=== PATIENT | male | born 1935 | race Hispanic/Latino ===

== ENCOUNTER 2018-02-04 06:49 | Observation (INO) | payer MEDICARE, OTHER ==
[2018-02-04] VITALS (32 sets, daily range): BP systolic 70–182; BP diastolic 55–112
[~2018-02-04] VITALS: Ht 167.6 cm; Wt 70.6 kg
[~2018-02-04 06:49] MED LIST: AMLODIPINE BESY10 MG PO; AZITHROMYCIN250 MG PO; CEFDINIR250 MG/5 M PO; CLONIDINE HCL0.1 MG PO; COMBIVENT RESPIM4 GM IH; COREG12.5 MG PO; FISH OIL500 M1 PO; FLOMAX0.4 MG PO; LASIX40 MG PO; LEVOTHYROXINE25 MCG PO; LOVASTATIN40 MG PO; PREDNISOLONE ACE5 ML; QVAR7.3 GM INH; RENVELA0.8 GM; SODIUM BICARBO650 MG PO; TERAZOSIN HCL2 MG PO; ULTRAM50 MG PO; VITAMIN D3400 UNIT PO
[2018-02-04 07:18] LABS: BASOPHILS % 0.2 % (0.0-1.0); EOSINOPHILS # (AUTO) 0.1 (0.0-0.4); EOSINOPHILS % 0.6 % (0.0-6.0); HEMATOCRIT 34.7 % (38.2-49.6); HEMOGLOBIN 11.1 g/dL (14.0-18.0); LYMPHOCYTES # (AUTO) 2.7 (1.0-3.2); LYMPHOCYTES % 31.4 % (18.0-39.1); MEAN CORPUSCULAR HEMOGLOBIN 28.6 pg (28-32); MEAN CORPUSCULAR VOLUME 89.4 fL (81-99); MONOCYTES # (AUTO) 0.6 (0.2-0.8); MONOCYTES % 6.4 % (4.4-11.3); NEUTROPHILS # (AUTO) 5.3 (2.1-6.9); NEUTROPHILS % 61.1 % (38.7-80.0); PLATELET COUNT 118 x10e3/uL (140-360); RED BLOOD COUNT 3.88 x10e6/uL (4.3-5.7); RED CELL DISTRIBUTION WIDTH 14.7 % (11.7-14.4)
[2018-02-04 07:25] LABS: INR 1.17
[2018-02-04] MEDS ORDERED: NIFEDIPINE ER30 MG (07:30)
[2018-02-04 07:35] LABS: ALBUMIN/GLOBULIN RATIO 1.1 (0.8-2.0); ANION GAP 17.4 mmol/L (8-16); CREATININE, SERUM 9.72 mg/dL (0.72-1.25); MAGNESIUM 2.2 MG/DL (1.3-2.1); POTASSIUM 4.4 mmol/L (3.5-5.1)
[2018-02-04 07:41] LABS: CREATINE KINASE MB 1.3 ng/mL (0-5.0)
[2018-02-04] MEDS ORDERED: FUROSEMIDE INJ 10 MG/ML 10 ML VIAL IV ONE (08:15)
[2018-02-04] MEDS ORDERED: ASPIRIN 325 MG TAB PO ONE (08:15)
[2018-02-04] MEDS ORDERED: NITROGLYCERIN 2% OINT 1 GM PKT TOP ONE (08:15)
--- NOTE | 2018-02-04 08:22 | Diagnostic Imaging Report ---
PROCEDURE: A single AP view of the chest. COMPARISON: Portable chest 12/02/2016. INDICATIONS: CHEST PAIN FOR A FEW HOURS FINDINGS: Lines/tubes: None. Lungs: Bilateral multifocal airspace opacifications. No parenchymal mass. Pleura: There is no pleural effusion or pneumothorax. Heart and mediastinum: The heart and the mediastinum are unremarkable. Bones: No acute bony abnormality. Degenerative changes of the thoracic spine. IMPRESSION: Bilateral multifocal airspace opacifications may represent edema or pneumonia. Dictated by: Urbano Aguirre M.D. on 02/04/2018 at 8:23 Electronically approved by: Urbano Aguirre M.D. on 02/04/2018 at 8:23
[2018-02-04] MEDS ORDERED: FUROSEMIDE INJ 10 MG/ML 4 ML VIAL ONE (08:30)
[2018-02-04] MEDS ORDERED: METOPROLOL TARTRATE INJ 1 MG/ML VIAL IV STA (10:08)
[2018-02-04] MEDS ORDERED: ONDANSETRON HCL INJ 2 MG/ML VIAL IV PRN ×2 (14:15→17:45)
[2018-02-04] MEDS ORDERED: NITROGLYCERIN 0.4 MG SUBL SL PRN (14:15)
[2018-02-04] MEDS ORDERED: MORPHINE SULFATE 2 MG/ML SYR IV PRN ×2 (14:15→17:45)
[2018-02-04] MEDS ORDERED: SODIUM CHLORIDE FLUSH 10 ML SYR INJ PRN (14:15)
[2018-02-04] MEDS ORDERED: HYDRALAZINE HCL 20 MG/ML VIAL IV PRN (15:00)
[2018-02-04] MEDS ORDERED: ALBUTEROL/IPRATROPIUM 3 ML NEB NEB PRN (15:00)
[2018-02-04] MEDS ORDERED: ACETAMINOPHEN 325 MG TAB PO PRN ×2 (15:15→17:45)
--- OUTSIDE RECORDS SUMMARY | 2018-02-04 15:21 | XMS REPORT ---
Author Author [facility] Address Unknown Phone Unavailable Care Team Providers Care Manager Cost Name Role Phone KAYDEN COMER Unavailable Unavailable Problems This patient has no known problems. Allergies, Adverse Reactions, Alerts This patient has no known allergies or adverse reactions. Medications This patient has no known medications. Results Test Description Test Time Test Comments Text Results Atomic Results Result Comments CHEST SINGLE (PORTABLE) [place] [id number] Patient Name: DENISE VALLE MR #: [id number] : 1935 Age/Sex: 82/M Req #: [id number] Adm Physician: Ordered by: JUN LUTHER MD Report #: [id number] Location: ER Room/Bed: Procedure: [id number] DX/CHEST SINGLE (PORTABLE) Exam Date: 02/04/18 Exam Time: 0800 REPORT STATUS: Signed PROCEDURE: A single AP view of the chest. COMPARISON: Portable chest 12/02/2016. INDICATIONS: CHEST PAIN FOR A FEW HOURS FINDINGS: Lines/tubes: None. Lungs: Bilateral multifocal airspace opacifications. No parenchymal mass. Pleura: There is no pleural effusion or pneumothorax. Heart and mediastinum: The heart and the mediastinum are unremarkable. Bones: No acute bony abnormality. Degenerative changes of the thoracic spine. IMPRESSION: Bilateral multifocal airspace opacifications may represent edema or pneumonia. Dictated by: Angela Quezada M.D. on at 8:23 Electronically approved by: Angela Quezada M.D. on 2017 at 8:23 Dictated By: ANGELA QUEZADA MD 2 Transcribed By: MARGARET on 02/04/18822 COPY TO: JUN LUTHER MD
--- NOTE | 2018-02-04 15:27 | Consultation ---
DATE OF CONSULTATION: February 04, 2018 The patient was seen in the emergency room. This is an 82-year-old gentleman well known to me. He is a dialysis patient of ours. Dialyzes at [facility] dialysis on a Sunday, Sunday and Sunday schedule. Slept fine. He had no problems he claims when he slept. Then at midnight he developed chest pain, which was lower sternal area. No radiation. No diaphoresis. Presented to the emergency room and has an abnormal ECG and possible CA. Cardiology will be consulted. Renal consult for management of kidney failure. He is currently laying supine. No apparent respiratory distress. Denies nausea, vomiting, chest pain, or shortness of breath. Labs show white count 8.7, hemoglobin 11.1 with a potassium of 4.4, bicarbonate 29, creatinine 9.7. Calcium is 11. BNP 2163. Chest x-ray shows cardiomegaly with pulmonary edema. ALLERGIES: NO APPARENT DRUG ALLERGIES. HOME MEDICATIONS: Not reconciled yet. Has received nitroglycerin when he had chest pain in the emergency room, and the pain resolved with 1 sublingual nitroglycerin. Also, received 5 mg of metoprolol IV, as well as morphine sulfate on a p.r.n. basis. He is also on ondansetron. SOCIAL HISTORY: Does not smoke or drink. PAST MEDICAL HISTORY: Underlying history of end-stage renal disease, congestive heart failure, atherosclerotic cardiovascular disease, secondary hyperparathyroidism, and anemia. PHYSICAL EXAMINATION GENERAL: Awake, alert and oriented times 3. Laying supine. No apparent distress. VITALS: Blood pressure 144/89, pulse rate 102, afebrile, respiratory rate 20, oxygen saturation 97%. HEAD AND NECK: Cornea clear. Oral mucosa are dry. LUNGS: Bibasilar rales. HEART: S1 and S2 audible. A 2-3/6 ejection systolic murmur heard over the left sternal border. ABDOMEN: Otherwise soft and nontender. LOWER EXTREMITY EXAMINATION: Shows no edema. IMPRESSION AND PLAN 1. Congestive heart failure. 2. Angina. 3. End-stage renal disease. 4. Fluid overload. 5. Pulmonary edema. 6. Hypercalcemia likely due to cinacalcet perhaps he is taking at home. Will hold off on all calcium products, including cinacalcet. Patient's family to bring home medication. I will arrange for dialysis. O2 protocol. Discuss with Dr. Porter. Cardiology to be consulted. Please see orders. Job#: [id number] RI
[2018-02-04] MEDS ORDERED: ONDANSETRON HCL 4 MG ORAL DISINTEGRATING TAB PO PRN (15:30)
[2018-02-04 15:49] LABS: CLARITY,URINE CLEAR (CLEAR); COLOR,URINE YELLOW (YELLOW); LEUKOCYTE ESTERASE ,URINE NEGATIVE (NEGATIVE)
[2018-02-04 15:50] LABS: BILIRUBIN,URINE NEGATIVE (NEGATIVE); KETONES,URINE NEGATIVE (NEGATIVE); NITRITE,URINE NEGATIVE (NEGATIVE); PROTEIN,URINE DIPSTICK 3+ (NEGATIVE); URINE UROBILINOGEN 0.2 mg/dL (0.2 - 1)
[2018-02-04 16:06] LABS: BACTERIA,URINE FEW /HPF; EPITHELIAL CELLS,URINE RARE /LPF
[2018-02-04] MEDS ORDERED: SODIUM CHLORIDE 0.9% 500ML 500 ML ONE (16:20)
[2018-02-04] MEDS: CLONIDINE HCL 0.1 MG TAB PO SCH (17:00)
[2018-02-04] MEDS: CARVEDILOL 12.5 MG TAB PO SCH (17:00)
[2018-02-04] MEDS ORDERED: FENTANYL CITRATE/PF 100MCG/2 ML INJ ONE (17:38)
[2018-02-04] MEDS ORDERED: MIDAZOLAM HCL 2 MG/2 ML VIAL ONE (17:38)
[2018-02-04] MEDS ORDERED: HYDROCODONE/APAP 5MG-325MG TAB PO PRN (17:45)
[2018-02-04] MEDS ORDERED: MORPHINE SULFATE 4 MG/ML SYR IV PRN (17:45)
[2018-02-04] MEDS ORDERED: LIDOCAINE HCL 2% LOCAL 20 ML VIAL ONE (17:54)
[2018-02-04 18:20] LABS: CREATINE KINASE MB 3.7 ng/mL (0-5.0)
[2018-02-04] MEDS: NITROGLYCERIN 2% OINT 1 GM PKT TOP SCH (18:49)
[2018-02-04] MEDS ORDERED: NIFEDIPINE CR 30 MG TAB PO SCH (21:00)
[2018-02-04] MEDS: SIMVASTATIN 40 MG TAB PO SCH (21:00)
[2018-02-04] MEDS ORDERED: ATORVASTATIN 40 MG TAB PO SCH (21:00)
[2018-02-04] MEDS ORDERED: SIMVASTATIN 20 MG TAB PO SCH (21:00)
--- NOTE | 2018-02-04 21:27 | Consultation ---
DATE OF CONSULTATION: February 04, 2018 REASON FOR CONSULTATION: Chest pain. HISTORY OF PRESENT ILLNESS: Mr. Caldwell is an 82-year-old gentleman with past medical history of hypertension, hypercholesterolemia, end stage renal disease on hemodialysis for the past 6 years, history of chronic lymphocytic leukemia currently under observation, who presents to this institution after waking up at around midnight today with severe substernal chest pain, pressure, tightness, heaviness associated with dyspnea without any radiations. At one point the pain was so severe and he could not take it anymore and was relatively relentless. He was brought to the emergency room where admission EKG revealed significant [address] depressions in the inferolateral precordial leads rather ominous for active ischemia. Patient was stabilized in the emergency room and since that time his ST segments have improved. Upon probing, patient continues to have low level discomfort he reports is a 4/10 in the center of his chest despite medical therapy. We had a long discussion in terms of differential diagnoses and causes of chest pain and patient understands the high likelihood of an acute coronary syndrome. We only have 1 set of cardiac enzymes with the first set of troponin being 0.065, again BNP elevated at 2,163. Patient maintains good compliance with his hemodialysis and has not missed any however is due for dialysis session today. PAST MEDICAL HISTORY 1. Hypertension. 2. Hypercholesterolemia. 3. End stage renal disease on hemodialysis Sunday, Sunday and Sunday for the past 6 years. 4. Chronic lymphocytic leukemia, counts under observation with primary care physician. 5. Hypothyroidism. PAST SURGICAL HISTORY 1. Left arm fistula surgery. 2. History of bilateral corneal transplantation. FAMILY HISTORY: Mother at the age of 95 from old age. Father was unknown. Denies any family history of coronary disease. SOCIAL HISTORY: He is nonsmoker. Former heavy alcohol use, quit in the late . Denies any illicit drug use. ALLERGIES: NO KNOWN DRUG ALLERGIES. HOME MEDICATIONS: Include 1. Norvasc 10 mg daily. 2. Coreg 25 mg b.i.d. 3. Nifedipine 30 mg daily. 4. Renagel tablet daily. 5. Beclomethasone inhaled. 6. Atrovent inhaled. 7. Tramadol p.r.n. 8. Clonidine 0.1 mg b.i.d. REVIEW OF SYSTEMS GENERAL: Positive for fatigue, malaise. Denies any fevers, chills or any weight changes. HEENT: No headaches. Has chronically decreased vision. No sore throat, stuffy nose. RESPIRATORY: Denies any pleuritic components of the chest pain. Positive for shortness of breath when the pain was severe. CARDIOVASCULAR: As per HPI. Denies any subjective palpitations. GI: Denies any abdominal pain, nausea, vomiting, bright red blood per rectum, melena, hematemesis. : Denies any dysuria but does report decreased urinary frequency and is currently on hemodialysis. MUSCULOSKELETAL: He has chronic bilateral severe arthritic pain and back pain. PERIPHERAL VASCULAR: Denies any typical claudication symptoms. Does have some leg swelling at the end of the day. NEUROLOGIC: Does have some peripheral neuropathy sensation. Denies any focal weakness, history of seizures, TIA or stroke. Remainder of review of systems negative or otherwise mentioned. PHYSICAL EXAMINATION VITAL SIGNS: Height of 68 inches, weight of 162 pounds. Temperature 98.3, pulse 105, respiratory rate of 20, blood pressure 164/103, O2 sat 98% on room air. GENERAL: This is a well-nourished, well-developed gentleman who is currently in moderate distress. HEENT: Normocephalic, atraumatic. There is stigmata of old corneal surgery. NECK: There is some slight elevation of jugular venous pulsation left carotid bruit. CARDIOVASCULAR: Irregularly irregular rate and rhythm. Normal S1, S2. Soft 2-3/6 ejection murmur at the right upper sternal border. LUNGS: With decreased bibasilar breath sounds and decreased air entry with some basilar crackles. ABDOMEN: Soft, nontender, nondistended with normoactive bowel sounds. No hepatosplenomegaly. There is old laparoscopic cholecystectomy scar. BACK: No costovertebral angle tenderness. EXTREMITIES: Warm with 1+ right radial pulse, 1+ left radial pulse, left forearm fistula. There is 2+ bilateral femoral pulses and minimal diminished pedal pulses. There is 1+ edema. NEUROLOGIC: Cranial nerves II-XII are intact. Strength is 5/5. Grossly nonfocal. LABS: White count 8.7, hemoglobin 11.1, hematocrit 34.7, platelets 118, sodium 139, potassium 4.4, chloride 97, bicarb 29, BUN 47, creatinine 9.72, glucose 131, calcium 11.0, magnesium 2.2, AST 18, ALT 13, alk phos 99, total protein 7.7, albumin 4.0. BNP is 2,163. Troponin is 0.065. Chest x-ray shows bilateral multifocal airspace opacities, likely edema. EKG reveals atypical atrial flutter with rapid ventricular response. There is notable severe ST segment depressions in the inferolateral precordial leads concerning for ischemia that subsequently resolves when he is chest-pain free. DIAGNOSES 1. Acute unstable coronary syndrome. 2. Atrial flutter, atypical and new onset. 3. Hypertension. 4. Hypercholesterolemia. 5. End stage renal disease on hemodialysis. 6. Acute decompensated systolic heart failure with stigmata of acute pulmonary edema. 7. Chronic lymphocytic leukemia. 8. Thrombocytopenia. PLAN/RECOMMENDATIONS 1. From a cardiovascular standpoint, will proceed with urgent cardiac catheterization in light of ongoing chest pain symptoms and clinical presentation. 2. Will go ahead and continue beta alana therapy and statin therapy. 3. Aggressive risk factor modification of medical therapy. 4. Will check echocardiogram to look at his left ventricular function. 5. Appreciate renal consult for volume management. 6. Further plans/recommendations to follow. Job#: [id number] DRAGAN
[2018-02-04 22:18] LABS: CREATINE KINASE MB 4.1 ng/mL (0-5.0)
[2018-02-05] VITALS (67 sets, daily range): BP systolic 77–159; BP diastolic 56–109
[2018-02-05] MEDS: LEVOTHYROXINE SODIUM 25 MCG TABLET PO SCH (06:11)
[2018-02-05] MEDS: NITROGLYCERIN 2% OINT 1 GM PKT TOP SCH ×2 (06:12)
[2018-02-05 06:20] LABS: BASOPHILS % 0.1 % (0.0-1.0); EOSINOPHILS % 0.1 % (0.0-6.0); HEMATOCRIT 31.1 % (38.2-49.6); HEMOGLOBIN 9.9 g/dL (14.0-18.0); LYMPHOCYTES # (AUTO) 2.6 (1.0-3.2); LYMPHOCYTES % 33.2 % (18.0-39.1); MEAN CORPUSCULAR HEMOGLOBIN 28.5 pg (28-32); MEAN CORPUSCULAR HGB CONC 31.8 g/dL (31-35); MEAN CORPUSCULAR VOLUME 89.6 fL (81-99); MONOCYTES # (AUTO) 0.7 (0.2-0.8); MONOCYTES % 9.1 % (4.4-11.3); NEUTROPHILS # (AUTO) 4.5 (2.1-6.9); NEUTROPHILS % 57.2 % (38.7-80.0); PLATELET COUNT 104 x10e3/uL (140-360); RED BLOOD COUNT 3.47 x10e6/uL (4.3-5.7); RED CELL DISTRIBUTION WIDTH 15.1 % (11.7-14.4)
--- NOTE | 2018-02-05 06:42 | Diagnostic Imaging Report ---
EXAMINATION: CHEST SINGLE (PORTABLE) INDICATION: Chest pain, previous abnormal chest x-ray COMPARISON: 12/02/2016 FINDINGS: TUBES and LINES: None. LUNGS: Lungs are well inflated. Confluent airspace opacity in the left perihilar region and to a lesser extent involving the right lower lobe. There is mild prominence of the central pulmonary vasculature, consistent with pulmonary venous congestion. PLEURA: No pleural effusion or pneumothorax. HEART AND MEDIASTINUM: Cardiac size is moderately enlarged. BONES AND SOFT TISSUES: No acute osseous lesion. Soft tissues are unremarkable. UPPER ABDOMEN: No free air under the diaphragm. IMPRESSION: Findings are compatible with multifocal pneumonia versus early cardiogenic pulmonary edema. Signed by: Dr. Zander Pearl M.D. on 02/05/2018 6:39 AM
[2018-02-05 06:48] LABS: ALBUMIN 3.2 g/dL (3.5-5.0); ANION GAP 18.8 mmol/L (8-16); CALCIUM 9.4 mg/dL (8.4-10.2); CREATININE, SERUM 9.23 mg/dL (0.72-1.25); POTASSIUM 4.8 mmol/L (3.5-5.1)
[2018-02-05 06:58] LABS: CHOL/HDL RATIO 2.3 (3.9-4.7)
[2018-02-05] MEDS: ASPIRIN 325 MG TAB PO SCH (08:16)
[2018-02-05] MEDS: CARVEDILOL 12.5 MG TAB PO SCH ×2 (08:17→16:54)
[2018-02-05] MEDS: CLONIDINE HCL 0.1 MG TAB PO SCH (08:17)
[2018-02-05] MEDS: CLOPIDOGREL BISULFATE 75 MG TAB PO SCH (08:17)
--- NOTE | 2018-02-05 08:26 | Operative Report ---
DATE OF PROCEDURE: February 04, 2018 TITLE OF REPORT: Cardiac catheterization. INDICATIONS FOR CATHETERIZATION: This is 82-year-old gentleman with history of hypertension; hypercholesterolemia; end-stage renal disease, on hemodialysis for the past years; presents to this institution with rapidly escalating chest pain and ongoing relentless angina symptoms ongoing since night. DESCRIPTION OF PROCEDURE: After risks, benefits, pros and cons of today's procedure were explained, the patient agreed to proceed. The patient was brought to the cardiac catheterization laboratory in an urgent fashion where the right groin was prepped and draped in the usual sterile fashion. One percent lidocaine solution was used in the right groin region. Access in the right femoral artery was obtained, and a 4-Iraqi femoral sheath was placed. Selective coronary angiography of the [place] left and right coronaries was performed with JL4 and 3DRC diagnostic catheters respectively. An angled pigtail catheter was placed in the ventricle for ventriculography and hemodynamic assessment of ventricular filling pressures. After noting high-grade 99% OM1 lesion with AHMET-2 flow as well as high-grade 85% ramus intermedius lesion, we decided to proceed with intervention. The 4-Iraqi femoral sheath was upsized to a 6-Iraqi femoral sheath. IV Angiomax bolus was given for systemic anticoagulation. We initially went up with a 6-Iraqi XB 3.5 guiding catheter and selected the left main coronary ostia. Utilizing a 180 cm Prowater Flex guidewire, we successfully crossed the 99% OM1 lesion. We predilated the lesion with an Emerge 2.0 x 12 mm balloon up to 8 atmospheres of pressure. We then took a Synergy 2.25 x 22 mm drug- eluting stent and covered the entire lesion and deployed that up to 15 atmospheres of pressure. We went ahead and postdilated the proximal aspect of the stent with an NC Quantum 2.5 x 12 mm balloon up to 18 atmospheres of pressure. Final angiography revealed 0% residual stenosis, AHMET-3 flow, and no complications. At that point in time, we pulled back the Prowater Flex guidewire and crossed the ramus intermedius lesion. We proceeded with a direct stenting strategy with a Synergy 2.25 x 16 mm drug-eluting stent and deployed that up to 15 atmospheres of pressure. Final angiography revealed 0% residual stenosis, AHMET-3 flow, and no complications. At the conclusion of the case, femoral angiogram was performed revealing femoral artery stick, and a 6-Iraqi Angio-Seal closure device was successfully deployed, achieving hemostasis. COMPLICATIONS: None. ESTIMATED BLOOD LOSS: Minimal. FINDINGS: 1. Left main is angiographically normal and gives rise to an LAD, ramus intermedius, and circumflex branch. 2. The LAD is diffusely mildly diseased at 30% throughout. 3. The ramus intermedius is moderate to large-caliber vessel with 85% proximal stenosis. 4. The left circumflex artery has diffuse 40% ostial proximal stenosis, gives rise to a healthy segment in the mid circumflex artery and then from there branches a OM1 vessel that provides a bifurcating mid marginal branch has a 99% proximal stenosis. 5. The RCA is dominant and gives rise to 30% to 40% proximal-mid stenosis and terminates into right PDA and 2 right PLV branches that are moderate in caliber. Remainder of this vessel is mildly diffusely diseased. 6. Left ventricular ejection fraction is 50% with end-diastolic pressure of 24 mmHg. There is no significant LV to aortic pullback gradient. INTERVENTION SUMMARY: 1. Successful treatment of the 99% OM1 branch stenosis with implantation of a Synergy 2.25 x 20 mm drug-eluting stent resulting in 0% residual stenosis and AHMET-3 flow. 2. Successful treatment of the 85% proximal ramus intermedius vessel with implantation of a Synergy 2.25 x 16-mm drug-eluting stent resulting in 0% residual stenosis, AHMET-3 flow, and no complications. PLAN/RECOMMENDATIONS: 1. Aspirin and Plavix therapy. 2. Six-hour bed rest post revascularization. 3. Statin therapy. 4. Aggressive risk factor modification and medical therapy. 5. Will continue to follow the patient in the postoperative period and change plans as clinical course dictates. Job#: [id number] DR BOYD
[2018-02-05] MEDS ORDERED: ASPIRIN 81 MG ENTERIC COATED PO SCH (09:00)
[2018-02-05 09:13] LABS: ABG PH 7.51 (7.31-7.41)
[2018-02-05 09:14] LABS: ABG PCO2 38 mmHg (41-51); ABG PO2 45 mmHg (80-105)
[2018-02-05 09:15] LABS: ABG HCO3 30 mmol/L (23-28)
--- NOTE | 2018-02-05 10:14 | Consultation ---
DATE OF CONSULTATION: February 05, 2018 PULMONARY CONSULTATION This is a patient of Dr. Porter, Dr. Lundberg, Dr. Lawler. This charming, but unfortunate, 82-year-old gentleman was admitted with chest pain felt to be unstable angina, congestive heart failure, history of hyperlipidemia, hypothyroidism, end-stage renal disease on dialysis for the last 5 years. Alcohol in the past, quit in 1997. Smoked briefly in his youth. No history of asthma or COPD. PAST MEDICAL HISTORY: History of diabetes, BPH, thrombocytopenia related to liver disease, anemia of chronic disease. He had pneumonia last year. MEDICATIONS: Include Norvasc, Renvela, nifedipine, Coreg, clonidine, Levoxyl, lovastatin, tramadol. The patient has not been on antibiotics or bronchodilators. SURGICAL HISTORY: He had gallbladder surgery and AV fistula. FAMILY HISTORY: Positive for diabetes, PHYSICAL EXAMINATION GENERAL: This is a well-developed white male in no acute distress, looking his stated age. VITALS: Temperature 99.8, pulse 97, respirations 16, blood pressure 169/100. HEENT: Head is normocephalic and atraumatic. LUNGS: A few rhonchi. HEART: Regular rhythm. ABDOMEN: Nontender. EXTREMITIES: Not edematous. There is an AV fistula of the left arm. The patient underwent cardiac stent placement in obtuse marginal and ramus intermedius. IMPRESSION: Resolving pulmonary edema. Patient is comfortable on nasal oxygen. Saturation is 98%. Will defer antibiotic as there is no fever or cough. Chest x-ray suggests pulmonary edema and bilateral perihilar infiltrates. Thank you for this kind referral. Job#: [id number]
[2018-02-05] MEDS: HYDRALAZINE HCL 25 MG TAB PO SCH ×2 (14:58→21:12)
[2018-02-05] MEDS ORDERED: CARVEDILOL 12.5 MG TAB PO SCH ×2 (17:00)
[2018-02-05] MEDS ORDERED: NIFEDIPINE CR 30 MG TAB PO SCH (21:00)
[2018-02-05] MEDS: SIMVASTATIN 40 MG TAB PO SCH (21:13)
[2018-02-06] VITALS (25 sets, daily range): BP systolic 99–141; BP diastolic 57–85
[2018-02-06] MEDS: LEVOTHYROXINE SODIUM 25 MCG TABLET PO SCH (06:14)
[2018-02-06 06:17] LABS: BASOPHILS % 0.3 % (0.0-1.0); EOSINOPHILS # (AUTO) 0.1 (0.0-0.4); EOSINOPHILS % 0.6 % (0.0-6.0); HEMATOCRIT 31.7 % (38.2-49.6); HEMOGLOBIN 10.1 g/dL (14.0-18.0); LYMPHOCYTES # (AUTO) 3.3 (1.0-3.2); LYMPHOCYTES % 37.1 % (18.0-39.1); MEAN CORPUSCULAR HEMOGLOBIN 28.2 pg (28-32); MEAN CORPUSCULAR HGB CONC 31.9 g/dL (31-35); MEAN CORPUSCULAR VOLUME 88.5 fL (81-99); MONOCYTES # (AUTO) 0.9 (0.2-0.8); MONOCYTES % 10.4 % (4.4-11.3); NEUTROPHILS # (AUTO) 4.5 (2.1-6.9); NEUTROPHILS % 51.3 % (38.7-80.0); PLATELET COUNT 125 x10e3/uL (140-360); RED BLOOD COUNT 3.58 x10e6/uL (4.3-5.7); RED CELL DISTRIBUTION WIDTH 15.2 % (11.7-14.4)
[2018-02-06 06:47] LABS: ALBUMIN 3.3 g/dL (3.5-5.0); ALBUMIN/GLOBULIN RATIO 1.1 (0.8-2.0); ANION GAP 17.5 mmol/L (8-16); CREATININE, SERUM 6.88 mg/dL (0.72-1.25); POTASSIUM 4.5 mmol/L (3.5-5.1)
[2018-02-06] MEDS: CARVEDILOL 12.5 MG TAB PO SCH (08:18)
[2018-02-06] MEDS: CLOPIDOGREL BISULFATE 75 MG TAB PO SCH (08:18)
[2018-02-06] MEDS: HYDRALAZINE HCL 25 MG TAB PO SCH (08:18)
[2018-02-06] MEDS: ASPIRIN 325 MG TAB PO SCH (09:12)
--- NOTE | 2018-02-06 12:13 | Diagnostic Imaging Report ---
PROCEDURE:CHEST 2 VIEWS TECHNIQUE:PA and lateral chest INDICATION:Pulmonary edema COMPARISON:[facility], DX, CHEST SINGLE (PORTABLE), 02/05/2018, 5:42. FINDINGS: Interval decrease in central pulmonary edema, with small pleural effusions and bibasilar (left greater than right) airspace opacities. Upper limits of normal heart size for technique. Decreased central vascular prominence. Intact skeleton. CONCLUSION: Pulmonary edema has improved relative to February 05. There are small pleural effusions with adjacent airspace opacities in keeping with atelectasis. Dictated by: Juan Yoder M.D. on 02/06/2018 at 12:15 Electronically approved by: Juan Yoder M.D. on 02/06/2018 at 12:15
[2018-02-06] MEDS ORDERED: ASPIRIN81 MG PO (14:10)
[2018-02-06] MEDS ORDERED: PLAVIX75 MG PO (14:10)
--- NOTE | 2018-02-06 14:16 | Discharge Summary ---
PRIMARY CARE DOCTOR: Dr. Doc Malik FINAL DIAGNOSIS: Rtx-HI-umujevcmw myocardial infarction, status post percutaneous coronary intervention. SECONDARY DIAGNOSES 1. Atrial flutter. 2. Coronary artery disease. 3. End-stage renal disease. 4. Chronic lymphocytic leukemia. 5. Pulmonary edema, resolved. 6. Believed acute respiratory failure due to pulmonary edema. 7. Right internal carotid artery complete occlusion. Daughter has been informed. CONSULTANTS 1. Dr. Mitchell, pulmonary. 2. Dr. Lundberg, nephrology. 3. Dr. Lawler, cardiology. PROCEDURES/STUDIES PERFORMED 1. Left heart catheterization with stent placement. 2. Echocardiogram which was relatively benign. 3. Carotid ultrasound. HISTORY: Per [facility] and P. HOSPITAL COURSE: The patient was admitted for chest pain. His EKG shows ischemic changes. The patient was urgently taken to the labor economics professor where 2 stents were placed. For his pulmonary edema, the patient was briefly requiring BiPAP with daily dialysis times 2. He is much better. The patient will be going home on aspirin and Plavix. He did have complete right internal carotid artery occlusion. His daughter was informed. There is nothing that needs to be done at this time. The patient was found to have atrial flutter. I will inform this to his primary care doctor. At this time, we will not start any formal anticoagulation given his chronic mild thrombocytopenia. He is already on aspirin and Plavix. The patient was seen and examined today. It took 35 minutes total to discharge this patient. This case was discussed with all consultants. CONDITION ON DISCHARGE: Stable. DISCHARGE MEDICATIONS: Please see medication reconciliation form. The patient was seen and examined today. BING HUERTA M.D. Job#: [id number] RI cc: DOC MALIK MD
[2018-02-06] MEDS ORDERED: NIFEDIPINE CR 30 MG TAB PO SCH (21:00)
== END 2018-02-06 14:38 | disposition home or self-care (01) ==
LOC: ER 06:49 → IMCU 15:18 → ICU 18:15 → MED/SURG 02-06 09:09
PROVIDERS: ADMIT Internal Medicine; ATTEND Internal Medicine
DX: I21.4 Non-ST elevation (NSTEMI) myocardial infarction (principal); E03.9 Hypothyroidism, unspecified; E78.5 Hyperlipidemia, unspecified; N40.0 Benign prostatic hyperplasia without lower urinary tract symptoms; N18.6 End stage renal disease; E11.22 Type 2 diabetes mellitus with diabetic chronic kidney disease; I13.2 Hypertensive heart and chronic kidney disease with heart failure and with stage 5 chronic kidney disease, or end stage renal disease; E78.00 Pure hypercholesterolemia, unspecified; Z99.2 Dependence on renal dialysis; C91.10 Chronic lymphocytic leukemia of B-cell type not having achieved remission; I48.92 Unspecified atrial flutter; I50.21 Acute systolic (congestive) heart failure; D69.6 Thrombocytopenia, unspecified; E83.52 Hypercalcemia; I48.91 Unspecified atrial fibrillation; I25.119 Atherosclerotic heart disease of native coronary artery with unspecified angina pectoris
CPT/HCPCS: 36415 ×3; 71045 ×2; 71046; 77002; 80053 ×3; 80061; 81001; 82550; 82553; 82805; 82948; 83690; 83735; 83880; 84443; 84484; 85025 ×3; 85610; 85730; 87040; 87086; 90935; 92928 ×2; 93005 ×3; 93306; 93458; 93880; 94660; 97139; 99284; C1725; C1766; C1874; C1887; G0378 ×3; J1940; J2001; J2250; J7040; 36140; 90962; 92920; 92921; 92929; 93452; C9600; J0360

== ENCOUNTER 2018-03-25 11:06 | Inpatient (IN) | payer MEDICARE, OTHER ==
[~2018-03-25] VITALS: Ht 167.6 cm; Wt 70.3 kg
[~2018-03-25 11:06] MED LIST changes: +ASPIRIN81 MG PO; +NIFEDIPINE ER30 MG; +PLAVIX75 MG PO
--- OUTSIDE RECORDS SUMMARY | 2018-03-25 11:09 | XMS REPORT | Continuity of Care Document ---
Author Author [facility] Organization [facility] Address [address] [place] [address] Phone Unavailable Care Team Providers Care Trip Motor Operator Name Role Phone NONSTAFF PCP Unavailable Insurance Providers Guarantor Alexey Caldwell Address [address] [place] [address] Email PTDECLINED Payer [facility] Policy Number [id number] Subscriber's Name Alexey Caldwell Relationship 18 Self / Same As Patient Group Number [id number] Group Name RETIRED Effective Date 17 Payer [employer] Advantage Policy Number [id number] Subscriber's Name Alexey Cladwell Relationship 18 Self / Same As Patient Group Name RETIRED Effective Date 01 Advance Directives Directive Response Recorded Date/Time Does the patient have an advance directive? No 02/04/18 8:52pm If yes, is advance directive on file with [facility]? No 02/04/18 8:52pm If not on file with [facility] will patient provide a copy? No 02/04/18 8:52pm Do you have a Directive to Physician? No 02/04/18 7:57am Do you have a Medical Power of Gang Hemstitching Machine Operator? No 02/04/18 7:57am Do you have an out of hospital Do Not Resuscitate Order? No 02/04/18 7:57am Do you have any special needs we should be aware of? No 02/04/18 7:57am Do you have a support person here with you today? Yes 02/04/18 7:57am Did patient receive Notice of Privacy Practices? Yes 02/04/18 7:57am Did patient receive patient rights and responsibilities? Yes 02/04/18 7:57am Problems Medical Problem Onset Date Status Pneumonia Unknown Medications Current Home Medications Medication Dose Units Route Directions Days Qty Instructions Start Date Aspirin 81 Mg Tab.chew 81 Mg Oral Daily Carvedilol (Coreg) 12.5 Mg Tab 12.5 Mg Oral Twice A Day Clopidogrel Bisulfate (Plavix) 75 Mg Tablet 75 Mg Oral Daily 30 Tab Levothyroxine Sodium 25 Mcg Tablet 25 Mcg Oral Daily Lovastatin 40 Mg Tablet 40 Mg Oral Bedtime THERAPEUTICALLY SUBSTITUTED WITH SIMVASTATIN 20MG Nifedipine (Nifedipine Er) 30 Mg Tablet.er 30 Past Home Medications Medication Directions Ordered Status Amlodipine Besylate 10 Mg Tablet, 10 Mg Oral Daily Discontinued Azithromycin (Z-Pasha) 250 Mg Tablet, 250 Mg Oral Use As Directed Discontinued Beclomethasone Dipropionate (Qvar) 7.3 Gm Aer.w.adap, 1 Inch Inhalation Daily Discontinued Cefdinir 250 Mg/5 Ml Susp.recon, 300 Mg Oral Twice A Day Discontinued Cholecalciferol (Vitamin D3) (Vitamin D3) 400 Unit Tablet, 400 Mg Oral Daily Discontinued Clonidine Hcl 0.1 Mg Tablet, 1 Tab Oral Twice A Day Discontinued Furosemide (Lasix) 40 Mg Tablet, 40 Mg Oral Daily Discontinued Ipratropium/Albuterol Sulfate (Combivent Respimat Inhal [place]) 4 Gm Aer.w.adap , 4 Gm Inhalation Every 8 Hours Discontinued Liberty-3 Fatty Acids (Fish Oil) 500 Mg Capsule.dr, 1000 Mg Oral Daily Discontinued Prednisolone Acetate 5 Ml Drops.susp, Discontinued Sevelamer Carbonate (Renvela) 0.8 Gm Powd.pack, Discontinued Sodium Bicarbonate 650 Mg Tablet, 650 Mg Oral Twice A Day Discontinued Tamsulosin Hcl (Flomax*) 0.4 Mg Cap, 0.4 Mg Oral Daily Discontinued Terazosin Hcl 2 Mg Capsule, 1 Cap Oral Twice A Day Discontinued Tramadol Hcl (Ultram) 50 Mg Tablet, 50 Mg Oral Every 6 Hours as needed for Pain Discontinued Social History Social History Problem Response Recorded Date/Time Onset Date Status Hx Psychiatric Problems No 02/04/2018 8:52pm Not Applicable Not Applicable Hx Eating Disorder No 02/04/2018 8:52pm Not Applicable Not Applicable Hx Substance Use Disorder Y - Alcholic in the distant past 02/04/2018 8:52pm Not Applicable Not Applicable Hx Depression No 02/04/2018 8:52pm Not Applicable Not Applicable Hx Alcohol Use Y - past 02/04/2018 8:52pm Not Applicable Not Applicable Hx Substance Use Treatment No 02/04/2018 8:52pm Not Applicable Not Applicable Hx Physical Abuse No 02/04/2018 8:52pm Not Applicable Not Applicable Smoking Status Start Date Stop Date Never Smoker Hospital Discharge Instructions No hospital discharge instruction information available. Plan of Care Discharge Date 02/06/18 2:38pm Disposition HOME, SELF-CARE Instructions/Education Provided Atrial Fibrillation Prescriptions See Medication Section Additional Instructions/Education FOLLOW UP WITH MARK PCP Functional Status Query Response Date Recorded Assistive Devices None February 04, 2018 7:00pm Ambulation Ability Independent February 04, 2018 7:00pm Toileting Ability Minimum Assistance February 06, 2018 7:00am Allergies, Adverse Reactions, Alerts Allergen Type Severity Reaction Status Last Updated No Known Drug Allergies Allergy Unknown Active 12/02/16 Immunizations No immunization information available. Vital Signs Acute Vital Signs Vital Response Date/Time Temperature (Fahrenheit) 97.1 degrees F (97.6 - 99.5) 02/06/2018 11:56am Pulse Pulse Rate (adult) 85 bpm (60 - 90) 02/06/2018 11:56am Respiratory Rate 20 bpm (12 - 24) 02/06/2018 11:56am Blood Pressure 115/63 mm Hg 02/06/2018 11:56am Height 5 ft 6 in 02/04/2018 7:00am Weight 155.75 lb 02/06/2018 4:40am Body Mass Index 25.1 kg/m^2 02/06/2018 4:40am Results Laboratory Results Test Name Result Units Flags Reference Collection Date/Time Result Date/ Time Comments White Blood Count 8.75 x10e3/uL 4.8-10.8 02/06/2018 5:40am 02/06/2018 6 :36am Red Blood Count 3.58 x10e6/uL L 4.3-5.7 02/06/2018 5:40am 02/06/2018 6: 36am Hemoglobin 10.1 g/dL L 14.0-18.0 02/06/2018 5:40am 02/06/2018 6:36am Hematocrit 31.7 % L 38.2-49.6 02/06/2018 5:40am 02/06/2018 6:36am Mean Corpuscular Volume 88.5 fL 81-99 02/06/2018 5:40am 02/06/2018 6: 36am Mean Corpuscular Hemoglobin 28.2 pg 28-32 02/06/2018 5:40am 02/06/2018 6:36am Mean Corpuscular Hemoglobin Concent 31.9 g/dL 31-35 02/06/2018 5:40am 02/06/2018 6:36am Red Cell Distribution Width 15.2 % H 11.7-14.4 02/06/2018 5:402017 6:36am Platelet Count 125 x10e3/uL L 140-360 02/06/2018 5:4002/06/2018 6: 36am Neutrophils (%) (Auto) 51.3 % 38.7-80.0 02/06/2018 5:4002/06/2018 6: 36am Lymphocytes (%) (Auto) 37.1 % 18.0-39.1 02/06/2018 5:4002/06/2018 6: 36am Monocytes (%) (Auto) 10.4 % 4.4-11.3 02/06/2018 5:4002/06/2018 6: 36am Eosinophils (%) (Auto) 0.6 % 0.0-6.0 02/06/2018 5:40am 02/06/2018 6: 36am Basophils (%) (Auto) 0.3 % 0.0-1.0 02/06/2018 5:4002/06/2018 6:36am IM GRANULOCYTES % 0.3 % 0.0-1.0 02/06/2018 5:4002/06/2018 6:36am Neutrophils # (Auto) 4.5 2.1-6.9 02/06/2018 5:4002/06/2018 6:36am Lymphocytes # (Auto) 3.3 H 1.0-3.2 02/06/2018 5:40am 02/06/2018 6: 36am Monocytes # (Auto) 0.9 H 0.2-0.8 02/06/2018 5:40am 02/06/2018 6:36am Eosinophils # (Auto) 0.1 0.0-0.4 02/06/2018 5:40am 02/06/2018 6:36am Basophils # (Auto) 0.0 0.0-0.1 02/06/2018 5:40am 02/06/2018 6:36am Absolute Immature Granulocyte (auto 0.03 x10e3/uL 0-0.1 02/06/2018 5: 40am 02/06/2018 6:36am Prothrombin Time 14.0 seconds 11.9-14.5 02/04/2018 7:05am 02/04/2018 7: 26am Prothromb Time International Ratio 1.17 02/04/2018 7:05am 2017 7:26am Oral Anticoagulant Therapy INR Values: 1. Low Intensity Therapy 1.5 - 2.0 2. Moderate Intensity Therapy 2.0 - 3.0 3. High Intensity Therapy(1) 2.5 - 3.5 4. High Intensity Therapy(2) 3.0 - 4.0 5. Panic Value INR > 5.0 Activated Partial Thromboplast Time 32.0 seconds 23.8-35.5 02/04/2018 7: 05am 02/04/2018 7:26am Urine Color YELLOW YELLOW 02/04/2018 3:20pm 02/04/2018 3:50pm Urine Clarity CLEAR CLEAR 02/04/2018 3:20pm 02/04/2018 3:50pm Urine Specific [place] 1.020 1.010-1.025 02/04/2018 3:20pm 2017 3:50pm Urine pH 8 H 5 - 7 02/04/2018 3:20pm 02/04/2018 3:50pm Urine Leukocyte Esterase NEGATIVE NEGATIVE 02/04/2018 3:20pm 2017 3:50pm Urine Nitrite NEGATIVE NEGATIVE 02/04/2018 3:20pm 02/04/2018 3:50pm Urine Protein 3+ H NEGATIVE 02/04/2018 3:20pm 02/04/2018 3:50pm Urine Glucose (UA) NEGATIVE NEGATIVE 02/04/2018 3:20pm 02/04/2018 3: 50pm Urine Ketones NEGATIVE NEGATIVE 02/04/2018 3:20pm 02/04/2018 3:50pm Urine Urobilinogen 0.2 mg/dL 0.2 - 1 02/04/2018 3:20pm 02/04/2018 3: 50pm Urine Bilirubin NEGATIVE NEGATIVE 02/04/2018 3:20pm 02/04/2018 3: 50pm Urine Blood 1+ H NEGATIVE 02/04/2018 3:20pm 02/04/2018 3:50pm Urine WBC NONE /HPF 0-5 02/04/2018 3:20pm 02/04/2018 4:06pm Urine RBC 6-10 /HPF H 0-5 02/04/2018 3:20pm 02/04/2018 4:06pm Urine Bacteria FEW /HPF NONE 02/04/2018 3:20pm 02/04/2018 4:06pm Urine Epithelial Cells RARE /LPF NONE 02/04/2018 3:20pm 02/04/2018 4: 06pm Sodium Level 141 mmol/L 136-145 02/06/2018 5:40am 02/06/2018 6:48am Potassium Level 4.5 mmol/L 3.5-5.1 02/06/2018 5:40am 02/06/2018 6:48am Chloride Level 100 mmol/L 98-107 02/06/2018 5:40am 02/06/2018 6:48am Carbon Dioxide Level 28 mmol/L 22-29 02/06/2018 5:40am 02/06/2018 6: 48am Anion Gap 17.5 mmol/L H 8-16 02/06/2018 5:40am 02/06/2018 6:48am Blood Urea Nitrogen 35 mg/dL H 7-26 02/06/2018 5:40am 02/06/2018 6:48am Creatinine 6.88 mg/dL H 0.72-1.25 02/06/2018 5:40am 02/06/2018 6:48am BUN/Creatinine Ratio 5 L 6-25 02/06/2018 5:40am 02/06/2018 6:48am Estimat Glomerular Filtration Rate 8 ML/MIN L 60- 02/06/2018 5:40am 6:48am Ranges were taken from the National Kidney Disease Education Program and the National Kid[employer] Foundation literature. Reference ranges: 60 or greater: Normal 16-59 (for 3 consecutive months): Chronic kidney disease 15 or less: Kidney failure Glucose Level 125 mg/dL H 74-118 02/06/2018 5:40am 02/06/2018 6:48am Calcium Level 9.0 mg/dL 8.4-10.2 02/06/2018 5:40am 02/06/2018 6:48am Bedside Glucose 122 mg/dL H 70-120 02/05/2018 11:30am 02/05/2018 11: 39am Meter ID: [id number] Magnesium Level 2.2 MG/DL H 1.3-2.1 02/04/2018 7:05am 02/04/2018 7:37am Total Bilirubin 0.9 mg/dL 0.2-1.2 02/06/2018 5:40am 02/06/2018 6:48am Aspartate Amino Transf (AST/SGOT) 15 IU/L 5-34 02/06/2018 5:40am 2017 6:48am Alanine Aminotransferase (ALT/SGPT) 10 IU/L 0-55 02/06/2018 5:40am 6:48am Total Protein 6.4 g/dL L 6.5-8.1 02/06/2018 5:40am 02/06/2018 6:48am Albumin 3.3 g/dL L 3.5-5.0 02/06/2018 5:40am 02/06/2018 6:48am Globulin 3.1 g/dL 2.3-3.5 02/06/2018 5:40am 02/06/2018 6:48am Albumin/Globulin Ratio 1.1 0.8-2.0 02/06/2018 5:40am 02/06/2018 6: 48am Alkaline Phosphatase 72 IU/L 40-150 02/06/2018 5:40am 02/06/2018 6: 48am Triglycerides Level 66 MG/DL 0-149 02/05/2018 5:30am 02/05/2018 7:25am Cholesterol Level 98 MD/DL 0-199 02/05/2018 5:30am 02/05/2018 7:25am Less than 200 mg/dL Low Risk 201 - 239 mg/dL Borderline Risk 240 mg/dl and greater High Risk LDL Cholesterol 42 MG/DL L 60-130 02/05/2018 5:30am 02/05/2018 7:25am HDL Cholesterol 43 MG/DL 40-60 02/05/2018 5:30am 02/05/2018 7:25am Cholesterol/HDL Ratio 2.3 L 3.9-4.7 02/05/2018 5:30am 02/05/2018 7: 25am B-Type Natriuretic Peptide 2163.2 pg/mL H 0-100 02/04/2018 7:05am 2017 7:43am Creatine Kinase 59 IU/L 30-200 02/04/2018 9:40pm 02/04/2018 10:12pm Creatine Kinase MB 4.10 ng/mL 0-5.0 02/04/2018 9:40pm 02/04/2018 10: 19pm Troponin I 1.467 ng/mL H 0-0.300 02/04/2018 9:40pm 02/04/2018 10:19pm Elevated result called to SATINDER FINK at 2218 on 02/04/18 by DERRICK GREGG. Lipase 20 U/L 8-78 02/04/2018 7:05am 02/04/2018 7:37am Thyroid Stimulating Hormone (TSH) 1.772 uIU/mL 0.350-4.940 02/05/2018 5: 30am 02/05/2018 7:39am Arterial Blood pH 7.51 H 7.31-7.41 02/05/2018 8:47am 02/05/2018 9: 19am Arterial Blood Partial Pressure CO2 38 mmHg L 41-51 02/05/2018 8:47am 9:19am Arterial Blood Partial Pressure O2 45 mmHg *L 80-105 02/05/2018 8:47am 9:19am Results called/hand delivered to KENDRA HAQ at 0914 on 02/05/18 by Shanel Bentley. RB OK. Arterial Blood HCO3 30 mmol/L H 23-28 02/05/2018 8:47am 02/05/2018 9: 19am Arterial Blood Base Excess 7.0 mmol/L H -2 - 3 02/05/2018 8:47am 2017 9:19am Arterial Blood Oxygen Saturation 85.0 % L 95-98 02/05/2018 8:47am 2017 9:19am FiO2 28 % 02/05/2018 8:47am 02/05/2018 9:19am THIS IS A MIXED VENOUS SAMPLE, PT WAS ATTEMPTED BY 3 THERAPISTS. PT WEARING 2LPM NASAL CANULA. Microbiology Results Procedure Source Organism/Result Collection Date/Time Result Date/Time Result Status Blood Culture Blood NO GROWTH AFTER 48 HOURS 7:03am 02/06/2018 9:06am Preliminary Procedures Procedure Status Date Provider(s) X-ray of chest, two views Active 02/06/18 FABRICIO BRITO MD Encounters Encounter Location Arrival/Admit Date Discharge/Depart Date Attending Provider Discharged Inpatient (obs) [facility] 02/04/18 3:18pm 2:38pm BING HUERTA MD
[2018-03-25] MEDS ORDERED: ASPIRIN 81 MG CHEW TAB PO ONE (11:30)
[2018-03-25 11:37] LABS: BASOPHILS % 0.3 % (0.0-1.0); EOSINOPHILS % 0.3 % (0.0-6.0); HEMATOCRIT 31.6 % (38.2-49.6); HEMOGLOBIN 9.9 g/dL (14.0-18.0); LYMPHOCYTES # (AUTO) 2.3 (1.0-3.2); LYMPHOCYTES % 31.8 % (18.0-39.1); MEAN CORPUSCULAR HEMOGLOBIN 27.8 pg (28-32); MEAN CORPUSCULAR HGB CONC 31.3 g/dL (31-35); MEAN CORPUSCULAR VOLUME 88.8 fL (81-99); MONOCYTES # (AUTO) 0.5 (0.2-0.8); MONOCYTES % 6.8 % (4.4-11.3); NEUTROPHILS # (AUTO) 4.3 (2.1-6.9); NEUTROPHILS % 60.5 % (38.7-80.0); PLATELET COUNT 208 x10e3/uL (140-360); RED BLOOD COUNT 3.56 x10e6/uL (4.3-5.7); RED CELL DISTRIBUTION WIDTH 16.5 % (11.7-14.4)
[2018-03-25] MEDS ORDERED: DILTIAZEM HCL 5 MG/ML 5 ML VIAL IV NR (11:45)
[2018-03-25 11:50] LABS: INR 1.34; PROTHROMBIN TIME 15.6 seconds (11.9-14.5)
[2018-03-25 11:51] LABS: PARTIAL THROMBOPLASTIN TIME 36.5 seconds (23.8-35.5)
[2018-03-25] MEDS ORDERED: DILTIAZEM HCL IV SOLN 125 MG in SODIUM CHLORIDE 0.9% 100 ML IV SCH (12:00)
[2018-03-25 12:02] LABS: ALBUMIN 3.7 g/dL (3.5-5.0); ALBUMIN/GLOBULIN RATIO 0.9 (0.8-2.0); ANION GAP 16.2 mmol/L (8-16); CALCIUM 9.4 mg/dL (8.4-10.2); CREATININE, SERUM 4.75 mg/dL (0.72-1.25); POTASSIUM 3.2 mmol/L (3.5-5.1)
[2018-03-25 12:08] LABS: CREATINE KINASE MB 1.6 ng/mL (0-5.0)
[2018-03-25] MEDS ORDERED: ASPIRIN 81 MG ENTERIC COATED PO ONE (12:29)
--- NOTE | 2018-03-25 12:50 | Diagnostic Imaging Report ---
PROCEDURE: A single AP view of the chest. COMPARISON: Chest x-ray 02/06/2018. INDICATIONS: CHEST PAIN, WEAK FINDINGS: Lines/tubes: None. Lungs: Bibasilar atelectasis and/or consolidation. Perihilar interstitial edema. Pleura: Questionable tiny bilateral pleural effusions. No pneumothorax. Heart and mediastinum: Mild cardiomegaly is unchanged. Bones: No acute bony abnormality. IMPRESSION: Mild cardiomegaly with interstitial edema consistent with fluid overload. Bibasilar atelectasis and/or consolidation. Dictated by: Alberto Betancourt M.D. on 03/25/2018 at 12:53 Electronically approved by: Alberto Betancourt M.D. on 03/25/2018 at 12:53
[2018-03-25] MEDS ORDERED: SODIUM CHLORIDE FLUSH 10 ML SYR INJ PRN (13:15)
[2018-03-25] MEDS ORDERED: CLOPIDOGREL BISULFATE 300 MG TAB-DO NOT STOCK PO ONE (17:30)
[2018-03-25] MEDS ORDERED: CLOPIDOGREL BISULFATE 75 MG TAB PO ONE (17:45)
--- NOTE | 2018-03-25 19:16 | Consultation ---
DATE OF CONSULTATION: March 25, 2018 CARDIAC CONSULTATION REASON FOR CONSULTATION: Atrial fibrillation with rapid ventricular response. HISTORY: An 83-year-old gentleman who is known with hypertension, hypercholesterolemia, end-stage renal disease, on hemodialysis for the last year or so, history of CLL. Patient presented to this institution with palpitations, chest tightness and not feeling well. He was found to be in atrial fibrillation with rapid ventricular response. He was started on Cardizem. Cardiac consultation is obtained. His first set of troponin is normal. His hemoglobin is 9.9, hematocrit 32%. His potassium was 3.2, BUN 17, creatinine of 4.75. I visited with the patient. He is feeling better now since heart rate is under control with Cardizem. He denied having any chest pain. He does have easy fatigability and shortness of breath on exertion at baseline. There is no orthopnea, paroxysmal nocturnal dyspnea. No syncope or presyncope. PAST MEDICAL HISTORY 1. Hypertension. 2. Hypercholesterolemia. 3. End-stage renal disease, on dialysis Sunday, Sunday and Sunday. 4. CLL. 5. Hypothyroidism. 6. Left arm fistula surgery. 7. Bilateral cataract surgery. 8. Admission with unstable coronary syndrome and [id number] myocardial infarction on February 04, 2018, with PCI to the ramus, as well as PCI to the obtuse marginal artery. Stents are for the obtuse marginal IS Synergy 2.5 x 20. For the ramus, it was 2.25 x 16 drug-eluted stent Synergy. Percutaneous coronary intervention and stenting of the ramus and obtuse marginal. SOCIAL HISTORY: He is a nonsmoker. Not an alcohol drinker. Good family support. HOME MEDICATIONS 1. Plavix 75 mg a day. 2. Lipitor 10 mg a day. 3. Norvasc 10 mg daily. 4. Coreg 25 mg twice a day. 5. Aspirin 81 mg a day. 6. Renagel inhaler of Atrovent and dexamethasone. 7. Clonidine 0.1 mg twice a day. REVIEW OF SYSTEMS GENERAL: No fever. No chills. HEENT: Unremarkable. PULMONARY/CARDIAC: As per acute illness. GI: No hematemesis. No melena. : No hematuria. No dysuria. MUSCULOSKELETAL: Back pain, peripheral vascular chronic swelling of the lower extremities. Chronic discoloration and evidence of venous, as well as skin disease. NEUROLOGICAL: No TIA or stroke or seizures symptoms. PHYSICAL EXAMINATION VITALS: Height of 5 feet 6 inches, weight of 155 pounds, blood pressure 140/80, heart rate of 100 per minute and irregular regular of atrial fibrillation, respiratory rate of 20. HEENT: Pupils are reactive. NECK: No elevation of jugular venous pulsation. No bruit. HEART: Irregular regular rate and recent normal 1st and 2nd heart sounds. There is a systolic murmur. CHEST: Decreased lung expansion. ABDOMEN: Soft with good bowel sounds. EXTREMITIES: Severe discoloration and evidence of venous insufficiency. Trace edema. Chronic venous changes. Decreased pedal pulses. NEUROLOGIC: Nonfocal. LAB DATA: Sodium 140, potassium 3.2, BUN of 17, creatinine of 4.8, glucose of 129. White blood cell count of 7000, hemoglobin 9.9, hematocrit 32%, platelet count of 208,000. Chest x-ray showed chronic changes. No pulmonary edema. EKG showing atrial fibrillation and possible atypical atrial flutter. IMPRESSION AND PLAN 1. Atrial arrhythmia flutter and fibrillation. 2. Hypertension. 3. Coronary artery disease. 4. Hypercholesteremia. 5. End-stage renal disease. 6. CLL. 7. Debility and old age. 8. Evidence of severe venous insufficiency and stasis and chronic skin changes. 9. Peripheral vascular disease. Cardiac teresa, my recommendation will be to continue Plavix. It is okay to continue the Cardizem IV for the time being. Will resume his Coreg. Patient needs to be anticoagulated. I will start him on Eliquis. Will stop the aspirin. Will give him amiodarone to try to control his heart rate, and to convert him to normal sinus rhythm. Plan and case discussed with the patient, his daughter and granddaughter, who is a nurse. Explained at length the plan, natural history, etc. Job#: [id number] JELLY
[2018-03-25] MEDS: AMIODARONE HCL 200 MG TAB PO SCH (23:15)
[2018-03-25] MEDS: ATORVASTATIN 20 MG TAB PO SCH (23:15)
--- NOTE | 2018-03-25 23:51 | History and Physical ---
DATE OF SERVICE: March 25, 2018 at 2 p.m. PRIMARY CARE PHYSICIAN: Dr. Malik SWEATBAND DECORATING MACHINE OPERATOR: Dr. Lawler CHIEF COMPLAINT: Chest pain. HISTORY OF PRESENT ILLNESS: This is an 83-year-old man with a history of myocardial infarction with a stent in January of 2018 and a history of atrial fibrillation, now developing chest pain, substernal region without any radiation. Denies any palpitations or shortness of breath. Brought to the hospital, found to have rapid heart rate and found to be in atrial fibrillation with rapid ventricular response. Patient admitted for further evaluation and management. PAST MEDICAL HISTORY: Hypertension; myocardial infarction; status post stent in January 2018; atrial fibrillation; end-stage renal disease, on hemodialysis. PAST SURGICAL HISTORY: Coronary stent placement, hemodialysis access. ALLERGIES: PER ELECTRONIC MEDICAL RECORD. FAMILY HISTORY/SOCIAL HISTORY: Patient is . Has 3 children. No alcohol or illicits. Has a remote history of smoking. MEDICATIONS: Per electronic medical record. REVIEW OF SYSTEMS: Denies any dizziness, fever, chills, sweats. PHYSICAL EXAMINATION: VITAL SIGNS: Have been reviewed. GENERAL APPEARANCE: Tired-appearing man resting in bed. HEENT: Anicteric. Pupils respond to light. No oral lesions. CARDIOVASCULAR: Rapid heart rate. LUNGS: Moderate breath sounds. ABDOMEN: Soft, nontender, nondistended. EXTREMITIES: No edema or calf tenderness. Left arm has a bruit. SKIN: Dry. PSYCHIATRIC: Flat affect. LABS: Reviewed. MEDICATIONS: Reviewed. ASSESSMENT AND PLAN: An 83-year-old man. 1. Atrial fibrillation with rapid ventricular response. Continue diltiazem drip. Admit to the intensive care unit. Patient is on apixaban and amiodarone. 2. Chest pain. Likely secondary to atrial fibrillation with rapid ventricular response. Will trend cardiac enzymes. 3. Coronary artery disease with history of stent in December. Will continue beta alana, statin, and Plavix. Also continue aspirin. 4. End-stage renal disease, on hemodialysis. Nephrology consultation. 5. Hypothyroidism. Continue Synthroid. Check thyroid-stimulating hormone. 6. Hypertension. Continue calcium channel alana. 7. Normocytic anemia, moderate. We will follow. 8. Hypokalemia. Will monitor. 9. Interstitial edema. Diurese patient by dialysis. 10. Prophylaxis. Will use Pepcid while patient is on anticoagulation. 11. Disposition. Monitor closely in the intensive care unit. Critical care time more than 35 minutes. Job#: [id number]
[2018-03-26] VITALS (8 sets, daily range): BP systolic 158–188; BP diastolic 72–90
--- NOTE | 2018-03-26 02:36 | History and Physical ---
ADDENDUM ASSESSMENT AND PLAN 1. Systolic congestive heart failure. Left ventricular ejection fraction was 45%. We will monitor. Patient does have some pulmonary edema. Fluid removal by dialysis. 2. BPH. Use Flomax if needed. Job#: [id number] CF
[2018-03-26 04:22] LABS: BASOPHILS % 0.2 % (0.0-1.0); EOSINOPHILS # (AUTO) 0.1 (0.0-0.4); HEMATOCRIT 25.9 % (38.2-49.6); HEMOGLOBIN 7.9 g/dL (14.0-18.0); LYMPHOCYTES # (AUTO) 1.8 (1.0-3.2); LYMPHOCYTES % 30.2 % (18.0-39.1); MEAN CORPUSCULAR HEMOGLOBIN 27.6 pg (28-32); MEAN CORPUSCULAR HGB CONC 30.5 g/dL (31-35); MEAN CORPUSCULAR VOLUME 90.6 fL (81-99); MONOCYTES # (AUTO) 0.9 (0.2-0.8); NEUTROPHILS # (AUTO) 3.2 (2.1-6.9); NEUTROPHILS % 53.3 % (38.7-80.0); PLATELET COUNT 192 x10e3/uL (140-360); RED BLOOD COUNT 2.86 x10e6/uL (4.3-5.7); RED CELL DISTRIBUTION WIDTH 16.8 % (11.7-14.4)
[2018-03-26 04:36] LABS: ALBUMIN 2.8 g/dL (3.5-5.0); ANION GAP 15.7 mmol/L (8-16); CALCIUM 8.1 mg/dL (8.4-10.2); CHOL/HDL RATIO 3.2 (3.9-4.7); CREATININE, SERUM 7.23 mg/dL (0.72-1.25); POTASSIUM 3.7 mmol/L (3.5-5.1)
[2018-03-26 04:43] LABS: CREATINE KINASE MB 0.8 ng/mL (0-5.0)
[2018-03-26] MEDS: LEVOTHYROXINE SODIUM 25 MCG TABLET PO SCH (05:53)
[2018-03-26] MEDS ORDERED: LEVOTHYROXINE SODIUM 25 MCG TABLET PO SCH (06:00)
[2018-03-26] MEDS: CARVEDILOL 12.5 MG TAB PO SCH ×2 (08:18→16:25)
[2018-03-26] MEDS: FAMOTIDINE 20 MG TAB PO SCH ×2 (08:18→16:25)
[2018-03-26] MEDS: AMIODARONE HCL 200 MG TAB PO SCH ×3 (08:18→21:00)
[2018-03-26] MEDS: APIXAB 2.5 MG TABLET PO SCH ×2 (08:19→16:25)
[2018-03-26] MEDS: CLOPIDOGREL BISULFATE 75 MG TAB PO SCH (08:19)
[2018-03-26] MEDS ORDERED: ASPIRIN 81 MG ENTERIC COATED PO SCH (09:00)
--- NOTE | 2018-03-26 15:52 | Consultation ---
DATE OF CONSULTATION: March 26, 2018 HISTORY OF PRESENT ILLNESS: Mr. Alexey Caldwell is an 83-year-old gentleman who was admitted with chest discomfort and has been seen by cardiology. He finished about 3 1/2 hours of dialysis on Sunday. Was admitted and apparently after dialysis renal consult was sought today. He is on a Sunday, Sunday dialysis schedule. He is currently awake, alert and sitting up. Denies nausea, vomiting or shortness of breath. Family by bedside. Workup includes chest x-ray shows evidence of mild congestive heart failure. He appears to be in sinus rhythm with stable vital signs. His blood pressure is 158/72, pulse rate 72, afebrile. Oxygen saturation 97% on room air. PHYSICAL EXAMINATION HEAD AND NECK: Cornea clear. Oral mucosa dry. LUNGS: breath sounds. Decreased air entry at the bases with occasional rales. HEART: S1 and S2 audible. ABDOMEN: Soft and nontender. EXTREMITIES: Lower extremities show no edema. AV fistula, left arm. LABORATORY DATA: Hemoglobin 7.9. Chemistries potassium 3.7. Creatinine 7.2. Troponin I was 0.055 and 0.034. ALLERGIES: NO APPARENT DRUG ALLERGIES. CURRENT MEDICATIONS: Famotidine, levothyroxine, atorvastatin 20 mg at bedtime, carvedilol 25 mg b.i.d., Plavix 300 mg once, aspirin 81 mg daily, Eliquis 2.5 mg b.i.d., amiodarone 200 mg t.i.d. Was on Cardizem drip and has been stopped. He is on 75 mg Plavix daily. SOCIAL HISTORY: Patient does not smoke or drink. FAMILY HISTORY: Significant for hypertension. PAST MEDICAL HISTORY: End-stage renal disease. Prior history of chronic lymphocytic leukemia. History of coronary artery disease status post PCI and stents. History of hyperlipidemia, hypertension, secondary hyperparathyroidism, anemia and hypothyroidism. IMPRESSION AND PLAN: Mild congestive heart failure, well compensated. Electrolytes stable. Anemia. Plan to type and cross match 2 units of packed red blood cells. Will transfuse. On dialysis tomorrow. Discussed with family member. Currently no acute indications for dialysis. Will place on oxygen protocol. Fluid restriction. Renal diet. Discussed with family and RN. Job#: [id number]
[2018-03-26] MEDS: CLONIDINE HCL 0.1 MG TAB PO PRN (17:14)
[2018-03-26] MEDS: FUROSEMIDE INJ 10 MG/ML 4 ML VIAL IV SCH (17:36)
[2018-03-26] MEDS: ATORVASTATIN 20 MG TAB PO SCH (21:00)
[2018-03-27] VITALS (9 sets, daily range): BP systolic 153–209; BP diastolic 67–90
[2018-03-27] MEDS: CLONIDINE HCL 0.1 MG TAB PO PRN ×2 (01:50→09:29)
[2018-03-27] MEDS: FUROSEMIDE INJ 10 MG/ML 4 ML VIAL IV SCH ×2 (05:52→17:34)
[2018-03-27] MEDS: LEVOTHYROXINE SODIUM 25 MCG TABLET PO SCH (05:53)
[2018-03-27 06:13] LABS: BASOPHILS % 0.1 % (0.0-1.0); EOSINOPHILS # (AUTO) 0.1 (0.0-0.4); EOSINOPHILS % 0.7 % (0.0-6.0); HEMATOCRIT 30.5 % (38.2-49.6); LYMPHOCYTES # (AUTO) 2.2 (1.0-3.2); LYMPHOCYTES % 30.3 % (18.0-39.1); MEAN CORPUSCULAR HEMOGLOBIN 27.6 pg (28-32); MEAN CORPUSCULAR HGB CONC 30.5 g/dL (31-35); MEAN CORPUSCULAR VOLUME 90.5 fL (81-99); MONOCYTES # (AUTO) 0.8 (0.2-0.8); MONOCYTES % 11.3 % (4.4-11.3); NEUTROPHILS # (AUTO) 4.1 (2.1-6.9); NEUTROPHILS % 57.2 % (38.7-80.0); PLATELET COUNT 168 x10e3/uL (140-360); RED BLOOD COUNT 3.37 x10e6/uL (4.3-5.7); RED CELL DISTRIBUTION WIDTH 16.6 % (11.7-14.4)
[2018-03-27 07:35] LABS: HEMOGLOBIN 9.3 g/dL (14.0-18.0)
[2018-03-27 08:03] LABS: ALBUMIN 3.5 g/dL (3.5-5.0); ALBUMIN/GLOBULIN RATIO 1.2 (0.8-2.0); ANION GAP 22.1 mmol/L (8-16); CALCIUM 8.1 mg/dL (8.4-10.2); CREATININE, SERUM 8.81 mg/dL (0.72-1.25); POTASSIUM 4.1 mmol/L (3.5-5.1)
[2018-03-27] MEDS: PANTOPRAZOLE 40 MG 10ML VIAL IV SCH ×2 (08:19→20:49)
[2018-03-27] MEDS: FAMOTIDINE 20 MG TAB PO SCH ×2 (08:19→16:17)
[2018-03-27] MEDS: CARVEDILOL 12.5 MG TAB PO SCH ×4 (08:19→21:00)
[2018-03-27] MEDS: AMIODARONE HCL 200 MG TAB PO SCH ×4 (08:20→21:00)
--- NOTE | 2018-03-27 08:43 | Progress Note ---
DATE: March 27, 2018 TIME: 8:06 a.m. OVERNIGHT: No events. REVIEW OF SYSTEMS: Denies any dizziness or chest pain. VITAL SIGNS: Reviewed. PHYSICAL EXAMINATION GENERAL: A tired-appearing man resting in bed. HEENT: Anicteric. CARDIOVASCULAR: Normal S1 and S2. LUNGS: Moderate breath sounds. ABDOMEN: Soft, nontender. EXTREMITIES: No edema. Left arm bruit. SKIN: Dry. PSYCHIATRIC: Flat affect. LABS: Reviewed. MEDICATIONS: Reviewed. ASSESSMENT AND PLAN: An 83-year-old man. 1. Atrial fibrillation with rapid ventricular response. 2. Chest pain. 3. Coronary artery disease with history of stent in December. 4. End-stage renal disease on hemodialysis. 5. Hypertension. 6. Hypothyroidism. 7. Hypokalemia. 8. Interstitial edema/pulmonary edema. 9. Systolic congestive heart failure with ejection fraction 45%. 10. BPH. PLAN 1. Hemoglobin improved. Likely does not need blood transfusion. 2. Stool occult blood was positive. GI has been consulted. 3. Patient appears euvolemic. 4. Dialysis planned for today. 5. Cardiac enzymes negative times 3. 6. LDL 51, triglycerides 71. 7. TSH is in the 2 range. 8. Discontinue apixaban due to his positive stool occult blood. Will continue with Plavix as he had a recent stent. 9. Follow up GI recommendations. Later on, can restart apixaban prior to discharge. Job#: [id number]
--- NOTE | 2018-03-27 08:50 | Progress Note ---
DATE: March 26, 2018 TIME: 7 a.m. OVERNIGHT: No events. REVIEW OF SYSTEMS: Denies any dizziness. PHYSICAL EXAMINATION VITAL SIGNS: Reviewed. GENERAL: A tired-appearing man resting in bed. HEENT: Anicteric. CARDIOVASCULAR: Normal S1 and S2. LUNGS: Moderate breath sounds. ABDOMEN: Soft and nontender. EXTREMITIES: No edema. SKIN: Dry. PSYCHIATRIC: Flat affect. LABS: Reviewed. MEDICATIONS: Reviewed. ASSESSMENT: An 83-year-old man with: 1. Atrial fibrillation with rapid ventricular response. 2. Chest pain. 3. Coronary artery disease with a history of stent in December. 4. End-stage renal disease, on hemodialysis. 5. Hypothyroidism. 6. Hypertension. 7. Normocytic anemia. 8. Hypokalemia. 9. Interstitial edema and pulmonary edema. PLAN 1. Add diuresis for fluid removal. 2. Follow up cardiac enzymes. 3. Follow up with cardiology recommendations. 4. Monitor closely. 5. Follow up lab counts. Job#: [id number] JELLY
[2018-03-27] MEDS ORDERED: LOSARTAN POTASSIUM 100 MG TAB PO ONE (11:30)
[2018-03-27] MEDS ORDERED: LOSARTAN POTASSIUM 100 MG TAB PO NR (12:30)
[2018-03-27] MEDS ORDERED: SODIUM CHLORIDE 0.9% 1000ML 1,000 ML ONE (12:36)
[2018-03-27] MEDS ORDERED: SODIUM CHLORIDE 0.9% 1000ML 1,000 ML IV PRN (13:00)
[2018-03-27] MEDS: SPIRONOLACTONE 25 MG TAB PO SCH (14:01)
[2018-03-27] MEDS ORDERED: NIFEDIPINE CR 30 MG TAB PO SCH (15:00)
[2018-03-27] MEDS: CLONIDINE HCL 0.2 MG TAB PO SCH ×3 (16:16→21:36)
[2018-03-27] MEDS: CLOPIDOGREL BISULFATE 75 MG TAB PO SCH (16:16)
[2018-03-27] MEDS: ALPRAZOLAM 0.25 MG TAB PO SCH ×2 (16:17→21:25)
[2018-03-27] MEDS: ATORVASTATIN 20 MG TAB PO SCH (20:49)
[2018-03-27] MEDS ORDERED: ALPRAZOLAM 0.25 MG TAB PO SCH (22:00)
[2018-03-28] VITALS: BP 151/62
[2018-03-28 04:00] VITALS: BP 115/56
[2018-03-28] MEDS: FUROSEMIDE INJ 10 MG/ML 4 ML VIAL IV SCH (06:10)
[2018-03-28] MEDS: LEVOTHYROXINE SODIUM 25 MCG TABLET PO SCH (06:10)
[2018-03-28] MEDS: ALPRAZOLAM 0.25 MG TAB PO SCH (07:06)
[2018-03-28] MEDS ORDERED: COREG12.5 MG PO (07:07)
[2018-03-28] MEDS ORDERED: ALPRAZOLAM0.25 MG PO (07:07)
[2018-03-28] MEDS ORDERED: CATAPRES0.2 MG PO (07:07)
[2018-03-28] MEDS ORDERED: LASIX40 MG PO (07:07)
[2018-03-28] MEDS ORDERED: PANTOPRAZOLE SO40 MG PO (07:07)
[2018-03-28] MEDS ORDERED: FAMOTIDINE20 MG PO (07:07)
[2018-03-28] MEDS ORDERED: ALDACTONE25 MG PO (07:07)
[2018-03-28] MEDS ORDERED: AMIODARONE HCL200 MG PO (07:07)
[2018-03-28 07:24] LABS: BASOPHILS % 0.3 % (0.0-1.0); EOSINOPHILS # (AUTO) 0.1 (0.0-0.4); EOSINOPHILS % 1.5 % (0.0-6.0); HEMATOCRIT 30.4 % (38.2-49.6); HEMOGLOBIN 9.6 g/dL (14.0-18.0); LYMPHOCYTES # (AUTO) 2.1 (1.0-3.2); LYMPHOCYTES % 33.8 % (18.0-39.1); MEAN CORPUSCULAR HEMOGLOBIN 27.7 pg (28-32); MEAN CORPUSCULAR HGB CONC 31.6 g/dL (31-35); MEAN CORPUSCULAR VOLUME 87.9 fL (81-99); MONOCYTES # (AUTO) 0.6 (0.2-0.8); MONOCYTES % 10.4 % (4.4-11.3); NEUTROPHILS # (AUTO) 3.3 (2.1-6.9); NEUTROPHILS % 53.5 % (38.7-80.0); PLATELET COUNT 158 x10e3/uL (140-360); RED BLOOD COUNT 3.46 x10e6/uL (4.3-5.7); RED CELL DISTRIBUTION WIDTH 16.2 % (11.7-14.4)
--- NOTE | 2018-03-28 07:29 | Discharge Summary ---
PRINCIPAL DIAGNOSES 1. Atrial fibrillation with rapid ventricular response. 2. Atypical chest pain. 3. Coronary artery disease with a history of stent in December. 4. End-stage renal disease, hemodialysis. 5. Interstitial edema and pulmonary edema. 6. Uncontrolled hypertension. 7. Hypertensive urgency. 8. Systolic congestive heart failure. Left ventricular ejection fraction 45%. 9. BPH. 10. Gastrointestinal bleed. Refusal of endoscopy. SECONDARY DIAGNOSIS: End-stage renal disease, on hemodialysis. CHIEF COMPLAINT: Chest pain. HISTORY OF PRESENT ILLNESS: An 83-year-old man with chest pain. Refer to the H and P for further details. HOSPITAL COURSE: Patient developed chest pain and found to have atrial fibrillation with rapid ventricular response. Treated with amiodarone and AV blocking agents. He had uncontrolled hypertension and hypertensive urgency treated with medication regimen. Medications have been adjusted. He had positive stool occult blood with GI bleed and refused endoscopy. For end-stage renal disease, he received dialysis during the hospitalization. The patient has systolic congestive heart failure, and has been somewhat euvolemic. He is currently appropriate for discharge and follow up. Apixaban has been discontinued. He will be continued on Plavix as he has drug-eluting stent only placed 3 months ago in December. DISCHARGE MEDICATIONS: Per electronic medical records. Include Protonix and Pepcid. FOLLOWUP 1. Primary care doctor in [address] Kay in 2 weeks. 3. Nephrology as directed. 4. Dr. Lawler in 2 weeks. CONDITION ON DISCHARGE: Stable and improving. DISCHARGE LOCATION: Home. WESLEY MILLER MD Job#: [id number] [place]
[2018-03-28 07:46] LABS: ALBUMIN 3.1 g/dL (3.5-5.0); ANION GAP 16.1 mmol/L (8-16); CALCIUM 8.2 mg/dL (8.4-10.2); CREATININE, SERUM 7.03 mg/dL (0.72-1.25); POTASSIUM 4.1 mmol/L (3.5-5.1)
[2018-03-28] MEDS: FAMOTIDINE 20 MG TAB PO SCH (07:59)
[2018-03-28] MEDS: PANTOPRAZOLE 40 MG 10ML VIAL IV SCH (09:33)
[2018-03-28] MEDS: SPIRONOLACTONE 25 MG TAB PO SCH (09:33)
[2018-03-28] MEDS: CLOPIDOGREL BISULFATE 75 MG TAB PO SCH (09:33)
[2018-03-28] MEDS: AMIODARONE HCL 200 MG TAB PO SCH (09:33)
== END 2018-03-28 11:19 | disposition home or self-care (01) | DRG 308 ==
LOC: ER 11:06 → ERHOLD 14:18 → IMCU 03-26 07:20
PROVIDERS: ADMIT Internal Medicine; ATTEND Internal Medicine
PROC: 5A1D70Z Performance of Urinary Filtration, Intermittent, Less than 6 Hours Per Day (ICD-10-PCS; principal; 2018-03-27)
DX: I48.91 Unspecified atrial fibrillation (principal); N18.6 End stage renal disease; I13.2 Hypertensive heart and chronic kidney disease with heart failure and with stage 5 chronic kidney disease, or end stage renal disease; K92.2 Gastrointestinal hemorrhage, unspecified; J81.1 Chronic pulmonary edema; I50.22 Chronic systolic (congestive) heart failure; C91.10 Chronic lymphocytic leukemia of B-cell type not having achieved remission; I25.10 Atherosclerotic heart disease of native coronary artery without angina pectoris; Z95.5 Presence of coronary angioplasty implant and graft; E11.22 Type 2 diabetes mellitus with diabetic chronic kidney disease; E11.65 Type 2 diabetes mellitus with hyperglycemia; Z99.2 Dependence on renal dialysis; Z79.84 Long term (current) use of oral hypoglycemic drugs; Z53.29 Procedure and treatment not carried out because of patient's decision for other reasons; Z85.6 Personal history of leukemia; E21.3 Hyperparathyroidism, unspecified; I87.2 Venous insufficiency (chronic) (peripheral); I48.4 Atypical atrial flutter; N40.0 Benign prostatic hyperplasia without lower urinary tract symptoms; D64.9 Anemia, unspecified; E11.51 Type 2 diabetes mellitus with diabetic peripheral angiopathy without gangrene; Z79.4 Long term (current) use of insulin; E87.6 Hypokalemia; E03.9 Hypothyroidism, unspecified; I25.2 Old myocardial infarction
CPT/HCPCS: 36415; 71045; 80053; 80061; 82270; 82550; 82553; 83735; 84443; 84484; 85025; 85610; 85730; 86705; 86706; 86850; 86900; 86920; 87340; 90962; 93005; 99284; J1940; J7030; J7050

== ENCOUNTER 2018-08-14 08:54 | Emergency (ER) | payer MEDICARE, OTHER ==
[~2018-08-14] VITALS: Ht 167.6 cm; Wt 70.3 kg
[~2018-08-14 08:54] MED LIST changes: +ALDACTONE25 MG PO; +ALPRAZOLAM0.25 MG PO; +AMIODARONE HCL200 MG PO; +CATAPRES0.2 MG PO; +FAMOTIDINE20 MG PO; -NIFEDIPINE ER30 MG; +NIFEDIPINE ER30 MG PO; +PANTOPRAZOLE SO40 MG PO
[2018-08-14] MEDS ORDERED: PHENYLEPHRINE HCL 1% NA SPR 15 ML BTL ONE ×2 (09:10→09:30)
[2018-08-14] MEDS ORDERED: ASPIR 8181 MG PO (09:15)
[2018-08-14] MEDS ORDERED: ISOSORBIDE MONO30 MG PO (09:15)
[2018-08-14] MEDS ORDERED: TERAZOSIN HCL1 MG PO (09:15)
[2018-08-14 10:30] VITALS: BP 147/72
== END 2018-08-14 10:39 | disposition home or self-care (01) ==
LOC: ER 08:54
DX: R04.0 Epistaxis (principal); I12.0 Hypertensive chronic kidney disease with stage 5 chronic kidney disease or end stage renal disease; N18.6 End stage renal disease; Z99.2 Dependence on renal dialysis
CPT/HCPCS: 99282